=== PATIENT | male | born 1965 | race Caucasian/White ===

== ENCOUNTER 2016-11-21 07:52 | Outpatient (CLI) | payer OTHER ==
--- NOTE | 2016-11-21 11:12 | DIAGNOSTIC IMAGING REPORT ---
PROCEDURE: US KIDNEY/RENAL COMPLETE INDICATION: NODULE OF KIDNEY TECHNIQUE: Alvarez scale and color Doppler sonographic imaging of the kidneys and urinary bladder was obtained. Intrarenal resistive indices were calculated when appropriate. COMPARISON: None. FINDINGS: The right kidney measures 11.1 x 5.5 x 6.0 cm. Normal cortical thickness and echogenicity. No hydronephrosis, cyst, solid mass, or shadowing calculus. Normal color Doppler blood flow throughout the kidney. Resistive indices in the intrarenal parenchymal arteries range from 0.5-0.62. The left kidney measures 10.4 x 5.5 x 5.5 cm. Normal cortical thickness and echogenicity. 1.1 cm corticomedullary cystic structure in the left lower pole with an imperceptible wall and no suspicious solid component. Internal vascularity cannot be assessed at the size. Normal color Doppler blood flow throughout the kidney. Resistive indices in the intrarenal parenchymal arteries range from 0.56-0.58. The filled urinary bladder has a volume of 86 ml and a post void residual of 1.5 ml. The urinary bladder wall is uniform in thickness without suspicious thickening or irregularity. No bladder debris, calcification or mass. Neither ureteral jet was seen during the exam. The visible portion the prostate gland measures of 5.0 x 4.8 x 2.9 cm. IMPRESSION: 1. 1.1 cm, benign appearing left lower pole corticomedullary cystic structure. 2. Normal urinary bladder morphology. 3. Mildly enlarged prostate gland.
== END 2016-11-21 23:00 ==
LOC: US SRH 07:52
DX: N28.89 Other specified disorders of kidney and ureter (principal); N40.0 Benign prostatic hyperplasia without lower urinary tract symptoms